=== PATIENT | male | born 1980 | race African-American/Black ===

== ENCOUNTER 2024-02-18 12:16 | Emergency (ER) | payer OTHER ==
[~2024-02-18] VITALS: Ht 160 cm; Wt 75.3 kg
[2024-02-18 12:43] VITALS: BP 143/83; PULSE 112; RESP 20; TEMP 98; O2SAT 98
== END 2024-02-18 15:22 | disposition home or self-care (01) ==
LOC: MED 12:16
DX: S80.812A Abrasion, left lower leg, initial encounter (principal); I10 Essential (primary) hypertension; Z98.890 Other specified postprocedural states; X58.XXXA Exposure to other specified factors, initial encounter; Y93.89 Activity, other specified; Y92.89 Other specified places as the place of occurrence of the external cause; Y99.8 Other external cause status
CPT/HCPCS: 73610; 99283